=== PATIENT | female | born 1960 | race Caucasian/White ===

== ENCOUNTER 2017-07-09 21:35 | Emergency (ER) | payer OTHER ==
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
[2017-07-10 00:58] VITALS: BP 125/79
== END 2017-07-10 00:58 | disposition home or self-care (01) ==
LOC: ER 21:35
DX: T14.8XXA Other injury of unspecified body region, initial encounter (principal); M54.2 Cervicalgia; V49.40XA Driver injured in collision with unspecified motor vehicles in traffic accident, initial encounter
CPT/HCPCS: 99283

== ENCOUNTER 2018-07-03 09:40 | Emergency (ER) | payer OTHER ==
[2018-07-03 09:47] VITALS: BP 134/72
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
== END 2018-07-03 10:59 | disposition home or self-care (01) ==
LOC: ER 09:40
DX: S16.1XXA Strain of muscle, fascia and tendon at neck level, initial encounter (principal); M54.2 Cervicalgia; V40.0XXA Car driver injured in collision with pedestrian or animal in nontraffic accident, initial encounter
CPT/HCPCS: 99283